=== PATIENT | female | born 1975 | race Caucasian/White ===

== ENCOUNTER 2019-12-28 19:15 | Emergency (ER) | payer BC ==
[~2019-12-28] VITALS: Ht 167.6 cm; Wt 73.6 kg
[2019-12-28 20:20] VITALS: TEMP 98.2
[2019-12-29 00:28] VITALS: BP 120/80; PULSE 76
== END 2019-12-29 00:28 | disposition home or self-care (01) ==
LOC: COL.ER 19:15 → EDBD 19:16 → COL.ER 19:16
DX: J06.9 Acute upper respiratory infection, unspecified (principal)